=== PATIENT | female | born 1950 | race Caucasian/White ===

== ENCOUNTER 2017-11-05 17:09 | Emergency (ER) | payer MEDICARE, BC ==
[2017-11-05 17:26] VITALS: BP 138/77
[2017-11-05] MEDS ORDERED: Albuterol/Ipratropium 3.0-0.5 MG/3 ML Neb Soln NEB PRN (17:51)
[2017-11-05] MEDS ORDERED: Azithromycin 250 MG Tab ONE (19:20)
[2017-11-05] MEDS ORDERED: predniSONE 10 MG Tab ONE (19:20)
[2017-11-05] MEDS ORDERED: Albuterol/Ipratropium 3.0-0.5 MG/3 ML Neb Soln ONE (19:20)
--- NOTE | 2017-11-05 19:47 | EDM.PDOC ---
ED HPI GENERAL MEDICAL PROBLEM - General Chief Complaint: Respiratory Problem Stated Complaint: ASTHMA Time Seen by Provider: 11/05/17 17:30 Source of Information: Reports: Patient, Family History Limitations: Reports: No Limitations - History of Present Illness INITIAL COMMENTS - FREE TEXT/NARRATIVE: Patient is a 67 year old woman with a history of asthma who [place] has a productive cough that hurts occassionally when she coughs. No fever or chills but it does make her SOB. No chest pain. 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: Other Medication(s) (Albuterol inhalter and budesonide nebs.) - Related Data Allergies Allergy/AdvReac Type Severity Reaction Status Date / Time acetaminophen Allergy Facial Verified 11/05/17 17:56 [From Darvocet-N] Swelling bee venom protein (honey bee) Allergy Swelling Verified 11/05/17 17:56 carisoprodol [From Soma] Allergy Other Verified 11/05/17 17:56 diphenhydramine HCl Allergy Hallucinati Verified 11/05/17 17:56 [From Benadryl] ons hydromorphone HCl Allergy Shortness Verified 11/05/17 17:56 [From Dilaudid] of Breath propoxyphene napsylate Allergy Facial Verified 11/05/17 17:56 [From Darvocet-N] Swelling daypro Allergy Swelling Uncoded 11/05/17 17:56 latex Allergy Blisters Uncoded 11/05/17 17:56 Past Medical History Cardiovascular History: Reports: High Cholesterol, Hypertension, Other (See Below) Other Cardiovascular History: A-Flutter Respiratory History: Reports: Asthma, Bronchitis, Recurrent, Sleep Apnea Gastrointestinal History: Reports: GERD, Other (See Below) Other Gastrointestinal History: hernia Genitourinary History: Reports: None Musculoskeletal History: Reports: Arthritis, Back Pain, Chronic, Fracture, Gout , Osteoarthritis Neurological History: Reports: None - Past Surgical History Cardiovascular Surgical History: Reports: None Respiratory Surgical History: Reports: None GI Surgical History: Reports: Appendectomy Female Surgical History: Reports: D&C Neurological Surgical History: Reports: Spinal Fusion Musculoskeletal Surgical History: Reports: None Social & Family History - Tobacco Use Smoking Status *Q: Never Smoker - Recreational Drug Use Recreational Drug Use: No ED ROS GENERAL - Review of Systems Review Of Systems: See Below Constitutional: Reports: Decreased Appetite HEENT: Reports: Sinus Problem Respiratory: Reports: Shortness of Breath, Wheezing, Cough Cardiovascular: Reports: No Symptoms Endocrine: Reports: No Symptoms GI/Abdominal: Reports: No Symptoms : Reports: No Symptoms Musculoskeletal: Reports: No Symptoms Skin: Reports: No Symptoms Neurological: Reports: No Symptoms Psychiatric: Reports: No Symptoms Hematologic/Lymphatic: Reports: No Symptoms Immunologic: Reports: No Symptoms ED EXAM, GENERAL - Physical Exam Exam: See Below Exam Limited By: No Limitations General Appearance: Alert, WD/WN, No Apparent Distress Eye Exam: Bilateral Eye: EOMI, Normal Fundi, Normal Inspection, PERRL Ears: Normal External Exam, Normal Canal, Hearing Grossly Normal, Normal TMs Ear Exam: Bilateral Ear: Auricle Normal, Canal Normal, TM normal Nose: Normal Inspection, Normal Mucosa, No Blood Throat/Mouth: Normal Inspection, Normal Lips, Normal Teeth, Normal Gums, Normal Oropharynx, Normal Voice, No Airway Compromise Head: Atraumatic, Normocephalic Neck: Normal Inspection, Supple, Non-Tender, Full Range of Motion Respiratory/Chest: No Respiratory Distress, Normal Breath Sounds, No Accessory Muscle Use, Chest Non-Tender, Rales, Rhonchi, Wheezing, Other (Improved after duoneb.) Cardiovascular: Normal Peripheral Pulses, Regular Rate, Rhythm, No Edema, No Gallop, No JVD, No Murmur, No Rub GI/Abdominal: Normal Bowel Sounds, Soft, Non-Tender, No Organomegaly, No Distention, No Abnormal Bruit, No Mass Back Exam: Normal Inspection, Full Range of Motion, NT Extremities: Normal Inspection Neurological: Alert, Oriented, CN II-XII Intact, Normal Cognition, Normal Gait, Normal Reflexes, No Motor/Sensory Deficits Psychiatric: Normal Affect, Normal Mood EKG INTERPRETATION EKG Date: 11/05/17 Rhythm: NSR [place]: Normal P-Wave: Present QRS: Normal ST-T: Elevated QT: Normal Comparison: No Change Course - Vital Signs Text/Narrative:: Uneventful ED course. She was breathing better after the Duoneb and felt better. She will go home on a Z-talha, Duonebs q 8 hours, Prednisone 40 mg daily for 3 days and then [address] Arce in 2 -3 days or return here if needed. Last Recorded V/S: Last Vital Signs Temp 36.7 C 11/05/17 17:20 Pulse 93 11/05/17 17:20 Resp 22 H 11/05/17 17:20 BP 138/77 11/05/17 17:20 Pulse Ox 98 11/05/17 17:20 - Orders/Labs/Meds Orders: Active Orders 24 hr Category Date Time Status EKG Documentation Completion [RC] ASDIRECTED Care 11/05/17 17:52 Active RT Aerosol Therapy [RC] ASDIRECTED Care 11/05/17 17:51 Active CXR [Chest 2V] [CR] Stat Exams 11/05/17 17:53 Taken Albuterol/Ipratropium [DuoNeb 3.0-0.5 MG/3 ML] Med 11/05/17 17:51 Active 3 ml NEB Q2H PRN Medication Orders Albuterol/Ipratropium (Duoneb 3.0-0.5 Mg/3 Ml) 3 ml NEB Q2H PRN PRN Reason: Cough Labs: Laboratory Tests 11/05/17 11/05/17 11/05/17 Range/Units 18:10 18:10 18:10 WBC 7.5 (4.0-11.0) K/uL RBC 4.45 (3.80-5.80) M/uL Hgb 14.4 (11.5-16.5) g/dL Hct 43.0 (37.0-47.0) % MCV 97 H (76-96) fL MCH 32.4 H (27.0-32.0) pg MCHC 33.5 (31.0-35.0) g/dL RDW 14.0 (11.0-16.0) % Plt Count 152 D (150-500) K/uL MPV 9.4 (6.0-10.0) fL Neut % (Auto) 63.1 (45.0-70.0) % Lymph % (Auto) 21.0 (20.0-40.0) % [place] % (Auto) 12.3 H (3.0-10.0) % Eos % (Auto) 2.9 (1.0-5.0) % Baso % (Auto) 0.7 H (0.0-0.5) % Neut # (Auto) 4.71 (2.00-7.50) K/uL Lymph # (Auto) 1.57 (1.50-4.00) K/uL [place] # (Auto) 0.92 H (0.20-0.80) K/uL Eos # (Auto) 0.22 (0.04-0.40) K/uL Baso # (Auto) 0.05 (0.02-0.10) K/uL Sodium 139 (136-145) mmol/L Potassium 4.1 (3.5-5.1) mmol/L Chloride 105 (98-107) mmol/L Carbon Dioxide 23.9 D (21.0-32.0) mmol/L Anion Gap 14.2 (5.0-15.0) mmol/L BUN 22 D (8-26) mg/dL Creatinine 0.84 (0.55-1.02) mg/dL Est Cr Clr Drug Dosing TNP Estimated GFR (MDRD) > 60 (>60) MLS/MIN BUN/Creatinine Ratio 26.2 H (6-25) Glucose 105 H (74-100) mg/dL Calcium 9.4 (8.5-10.1) mg/dL Total Bilirubin 0.7 (0.0-1.0) mg/dL AST 19 (15-37) U/L ALT 40 (12-78) U/L Alkaline Phosphatase 120 H (46-116) U/L Troponin I < 0.017 (0.000-0.060) ng/mL Total Protein 7.1 (6.4-8.2) g/dL Albumin 3.8 (3.4-5.0) g/dL Globulin 3.3 (2.2-4.2) g/dL Albumin/Globulin Ratio 1.2 (0.8-2.0) Meds: Medications Generic Name Dose Route Start Last Admin Trade Name Freq PRN Reason Stop Dose Admin Albuterol/Ipratropium 3 ml 11/05/17 17:51 Duoneb 3.0-0.5 Mg/3 Ml NEB Q2H PRN Cough Departure - Departure Time of Disposition: 19:51 Disposition: Home, W Home Health Agency 06 Condition: Good Clinical Impression: Asthmatic bronchitis with acute exacerbation - Discharge Information Instructions: Azithromycin tablets, Albuterol; Ipratropium solution for inhalation, Prednisone tablets, Community-Acquired Pneumonia, Adult Referrals: PCP,None [Primary Care Provider] - Forms: ED Department Discharge Additional Instructions: Take 1 duoneb 3 times a day as needed for cough and shortness of breath. Take 2 azithromycin tablets tonight, then take 1 tablet daily for the next 4 days. Take prednisone 4 tablets (40mg) daily for the next 3 days. Follow up with Dr. Arce on Tuesday - My Orders Last 24 Hours: My Active Orders 11/05/17 17:51 RT Aerosol Therapy [RC] ASDIRECTED Albuterol/Ipratropium [DuoNeb 3.0-0.5 MG/3 ML] 3 ml NEB Q2H PRN 11/05/17 17:52 EKG Documentation Completion [RC] ASDIRECTED 11/05/17 17:53 CXR [Chest 2V] [CR] Stat - Assessment/Plan Last 24 Hours: My Active Orders 11/05/17 17:51 RT Aerosol Therapy [RC] ASDIRECTED Albuterol/Ipratropium [DuoNeb 3.0-0.5 MG/3 ML] 3 ml NEB Q2H PRN 11/05/17 17:52 EKG Documentation Completion [RC] ASDIRECTED 11/05/17 17:53 CXR [Chest 2V] [CR] Stat
--- NOTE | 2017-11-06 19:14 | CR ---
DATE OF SERVICE: 11/05/2017 CLINICAL DATA: Cough. PA AND LATERAL CHEST: No priors. The heart size is normal. There are minimal atelectatic changes in the left lung bases. The lungs are otherwise clear. No pneumothorax. No pleural effusions. [id number] MTDD
== END 2017-11-05 19:40 | disposition home health service (06) ==
LOC: LB.ED 17:09
DX: J45.901 Unspecified asthma with (acute) exacerbation (principal); E78.00 Pure hypercholesterolemia, unspecified; I10 Essential (primary) hypertension; K21.9 Gastro-esophageal reflux disease without esophagitis; Z88.6 Allergy status to analgesic agent; Z91.030 Bee allergy status; Z88.8 Allergy status to other drugs, medicaments and biological substances; Z91.040 Latex allergy status
CPT/HCPCS: 36415; 71046; 80053; 84484; 85025; 93005; 99284-25; A9270-GY; J7620

== ENCOUNTER 2018-12-21 11:09 | Day surgery (SDC) | payer MEDICARE, BC ==
[~2018-12-21 11:09] MED LIST: Metoclopramide 10 MG/2 ML SDV IV PRN; Sodium Chloride 0.9% 1,000 ML IV SCH
[2018-12-21] MEDS ORDERED: Glycopyrrolate 0.2 MG/ML 2 ML SDV ONE (16:00)
[2018-12-21] MEDS ORDERED: Propofol 1,000 MG/100 ML SDV ONE (16:00)
[2018-12-21] MEDS ORDERED: Benzocaine/Butamben/Tetracaine Top Spray 56 GM Canister ONE (16:00)
--- NOTE | 2018-12-21 17:24 | OR ---
DATE OF OPERATION: 12/21/2018 PREOPERATIVE DIAGNOSES: Stomach problems, constipation, history of colon polyps, and family history of colon cancer. PROCEDURES: EGD with colonoscopy. ANESTHESIA: MAC. ESTIMATED BLOOD LOSS: Minimal. COMPLICATIONS: None. INDICATION FOR THE PROCEDURE: The patient is a 68-year-old female who has had persistent stomach problems in the past. She uses Bentyl. She has a hiatal hernia that has been infected in the past and is on Dexilant PPI as prescribed by her GI physician in [place]. Also has family history of colon cancer and complains of constipation. DESCRIPTION OF PROCEDURE: Informed consent was obtained from the patient. The was taken to the operating room and placed on table in left lateral decubitus position. Monitored anesthesia care was administered. Esophagoscope was advanced through the oral cavity through the esophagus, reaching the 2nd portion of the duodenum. Duodenum did appear to be normal. The antrum of the stomach did show some gastritis. Cold forceps biopsy of this was taken for H pylori testing. She did have several small benign-appearing polyps. She had an additional slightly larger sessile polyp that was a little more brownish in color and looked like it had bled a little bit recently. Cold forceps biopsy of this was taken. The polyp was soft. The stomach was otherwise unremarkable. No obvious hiatal hernia identified. No signs of esophageal reflux in the esophagus. The remainder of the esophagus exam was normal. The gastroscope was then withdrawn and proceeded with colonoscopy. Digital rectal exam performed and was normal. Colonoscope then advanced through the anus, directed towards the cecum. Cecum was reached and identified by appendiceal orifice and ileocecal valve. Colonoscope was then slowly withdrawn. At the hepatic flexure, she did have a small sessile polyp removed with hot forceps polypectomy. The remainder of the colon was mostly unremarkable. She did have a few small diverticula in the sigmoid and descending colon. Otherwise, no masses. No areas of ischemia or inflammation were identified. The rectum was also otherwise unremarkable. Colonoscope then withdrawn. FINDINGS: Gastritis with gastric polyps and colon polyp with diverticula. RECOMMENDATIONS: Would recommend to continue current medicines for her stomach. We will follow up on H pylori tests, would also recommend repeat screening surveillance colonoscopy in 5 years due to history of polyps and recurrent polyps found today. For her diverticula and constipation, recommend high-fiber diet and plenty of water. May follow up with primary care for those issues as well. MN/OBIE /[id number]
[2018-12-21 18:14] VITALS: BP 152/79; PULSE 87
== END 2018-12-21 17:30 | disposition home or self-care (01) ==
LOC: LB.SDS 11:09
PROVIDERS: ATTEND Surgery
DX: D12.3 Benign neoplasm of transverse colon (principal); K57.30 Diverticulosis of large intestine without perforation or abscess without bleeding; K59.00 Constipation, unspecified; K31.7 Polyp of stomach and duodenum; K31.89 Other diseases of stomach and duodenum; K21.9 Gastro-esophageal reflux disease without esophagitis; J45.909 Unspecified asthma, uncomplicated; F41.9 Anxiety disorder, unspecified; Z91.040 Latex allergy status; Z86.010 Personal history of colon polyps; Z80.0 Family history of malignant neoplasm of digestive organs
CPT/HCPCS: 43239; 45384; J2001; J2704; J2765; J3490; J7030; 43246; 88305; G0121

== ENCOUNTER 2024-10-23 09:44 | Emergency (ER) | payer MEDICARE, BC ==
[2024-10-23 11:07] LABS: HEMATOCRIT 35.5 % (37.0-47.0); HEMOGLOBIN 11.4 g/dL (11.5-16.5); MEAN CORPUSCULAR HEMOGLOBIN 33.2 pg (27.0-32.0); MEAN CORPUSCULAR HGB CONC 32.1 g/dL (31.0-35.0); MEAN PLATELET VOLUME 8.2 fL (6.0-10.0); RED BLOOD CELL COUNT 3.43 M/uL (3.80-5.80); RED CELL DISTRIBUTION WIDTH 13.5 % (11.0-16.0); WHITE BLOOD CELL COUNT,WBC 6.5 K/uL (4.0-11.0)
[2024-10-23 11:15] LABS: ANION GAP 17.5 mmol/L (5.0-15.0); BLOOD UREA NITROGEN,BUN 27 mg/dL (8-26); CALCIUM 9.6 mg/dL (8.5-10.1); CHLORIDE,CL 104 mmol/L (98-107); EST CRCL DRUG DOSING (CG) 26.39 mL/min; ESTIMATED GFR 36 mL/min (>60); GLUCOSE RANDOM 88 mg/dL (74-100); POTASSIUM,K 4.5 mmol/L (3.5-5.1); SODIUM,NA 143 mmol/L (136-145)
[2024-10-23 11:28] LABS: C-REACTIVE PROTEIN < 5.0 mg/L (<5.0)
[2024-10-23 12:15] VITALS: BP 159/75; PULSE 74
== END 2024-10-23 12:00 | disposition home or self-care (01) ==
LOC: LB.ED 09:44
DX: S90.02XA Contusion of left ankle, initial encounter (principal); S90.522A Blister (nonthermal), left ankle, initial encounter; E78.00 Pure hypercholesterolemia, unspecified; I10 Essential (primary) hypertension; K21.9 Gastro-esophageal reflux disease without esophagitis; J45.909 Unspecified asthma, uncomplicated; Z91.040 Latex allergy status; Z88.8 Allergy status to other drugs, medicaments and biological substances; Z79.82 Long term (current) use of aspirin; Z79.899 Other long term (current) drug therapy; X58.XXXA Exposure to other specified factors, initial encounter; Y93.89 Activity, other specified
CPT/HCPCS: 36415; 80048; 85027; 86140; 99283